=== PATIENT | male | born 1935 | race African-American/Black ===

== ENCOUNTER 2021-03-30 16:37 | Inpatient (IN) | payer MEDICARE, BC ==
[~2021-03-30] VITALS: Ht 188 cm; Wt 63.5 kg
[2021-03-30 18:34] LABS: BASOPHILS % 0.3 % (0.0-2.0); EOSINOPHILS % 0.2 % (0.0-5.0); HEMATOCRIT. 36.4 % (42.0-52.0); HEMOGLOBIN. 11.9 g/dL (14.0-18.0); LYMPHOCYTES % 34.8 % (20.0-50.0); MEAN CORPUSCULAR HEMOGLOBIN 24.7 pg (28.0-32.0); MEAN CORPUSCULAR VOLUME 75.9 fL (80.0-94.0); MEAN PLATELET VOLUME 8.9 fl (7.4-10.4); MONOCYTES % 6.2 % (2.0-8.0); NEUTROPHILS % 58.5 % (40.0-76.0); PLATELET 262 x1000/uL (130-400); RED CELL DISTRIBUTION WIDTH 18.5 % (11.6-14.6)
[2021-03-30 18:35] LABS: CHLORIDE 104 mEq/L (98-107); CLARITY URINE CLOUDY (CLEAR); COLOR URINE YELLOW (YELLOW); KETONES URINE TRACE (NEGATIVE); LEUKOCYTE ESTERASE URINE 2+ (NEGATIVE); NITRITE URINE NEGATIVE (NEGATIVE); OCCULT BLOOD URINE 2+ (NEGATIVE); PROTEIN URINE 1+ (NEGATIVE); SPECIFIC GRAVITY URINE 1.016 (1.005-1.030)
[2021-03-30 18:52] LABS: INR 1.5; PROTHROMBIN TIME 15.3 sec (9.6-11.0)
[2021-03-30] MEDS ORDERED: LISINOPRIL 10MG TABLET PO ONE (19:30)
[2021-03-30] MEDS ORDERED: CEFTRIAXONE 1 G PREMIX 50 ML IV ONE (19:30)
[2021-03-31] VITALS (7 sets, daily range): BP systolic 97–180; BP diastolic 59–93
[2021-03-31] MEDS ORDERED: HYDRALAZINE HCL 50MG TABLET PO ONE (01:00)
[2021-03-31] MEDS ORDERED: CLONIDINE 0.1MG TABLET PO PRN (04:45)
[2021-03-31] MEDS ORDERED: ACETAMINOPHEN 650MG/20.3ML UDC PO PRN (04:45)
[2021-03-31] MEDS ORDERED: DEXTROSE 50% WATER 50ML SYRINGE IV PRN (06:15)
[2021-03-31] MEDS: BLOOD SUGAR DIAGNOSTIC STRIP TEST SCH ×4 (06:38→21:24)
[2021-03-31] MEDS: INSULIN LISPRO 100 UNITS/ML SUBCUT SCH ×4 (06:45→21:25)
[2021-03-31] MEDS ORDERED: LEVOFLOXACIN 500MG PREMIX 100 ML IV SCH (08:00)
[2021-03-31] MEDS ORDERED: LEVOFLOXACIN 500MG PREMIX 100 ML IV NR (08:00)
[2021-03-31] MEDS ORDERED: IPRATROPIUM/ALBUTEROL 0.5-3(2.5)MG/3ML NEB HHN PRN (08:00)
[2021-03-31] MEDS ORDERED: LISINOPRIL 10MG TABLET PO SCH (09:00)
[2021-03-31] MEDS ORDERED: ENOXAPARIN 40MG/0.4ML SYR SUBCUT SCH (13:00)
[2021-03-31] MEDS: TAMSULOSIN HCL 0.4MG SR CAPSULE PO SCH (13:56)
[2021-03-31] MEDS: AMLODIPINE 10MG TABLET PO SCH (13:56)
[2021-03-31] MEDS ORDERED: LISI10TA26 PO (16:52)
[2021-03-31] MEDS ORDERED: WARF-67 PO (16:56)
[2021-03-31] MEDS ORDERED: FERR325T6 PO (16:56)
[2021-03-31] MEDS ORDERED: WARF1TAB85 PO (16:56)
[2021-03-31] MEDS ORDERED: ATOR40TA70 PO (16:56)
[2021-03-31] MEDS ORDERED: METF-416 PO (16:56)
[2021-03-31] MEDS ORDERED: WARFARIN SODIUM 5MG TABLET PO NR (19:30)
[2021-03-31 21:15] LABS: BASOPHILS % 0.4 % (0.0-2.0); EOSINOPHILS % 0.1 % (0.0-5.0); HEMATOCRIT. 35.9 % (42.0-52.0); HEMOGLOBIN. 11.7 g/dL (14.0-18.0); INR 1.6; LYMPHOCYTES % 26.6 % (20.0-50.0); MEAN CORPUSCULAR VOLUME 76.4 fL (80.0-94.0); MEAN PLATELET VOLUME 9.6 fl (7.4-10.4); MONOCYTES % 9.9 % (2.0-8.0); PLATELET 246 x1000/uL (130-400); PROTHROMBIN TIME 16.3 sec (9.6-11.0); RED BLOOD CELL COUNT 4.69 mill/uL (4.7-6.1); RED CELL DISTRIBUTION WIDTH 18.9 % (11.6-14.6)
[2021-03-31] MEDS: METOPROLOL TARTRATE 50MG TABLET PO SCH (21:23)
[2021-03-31] MEDS: ATORVASTATIN CALCIUM 40MG TABLET PO SCH (21:24)
[2021-03-31 21:26] LABS: CHLORIDE 103 mEq/L (98-107)
[2021-04-01] VITALS: BP 145/68
[2021-04-01 04:00] VITALS: BP 155/83
[2021-04-01 06:02] LABS: BASOPHILS % 0.4 % (0.0-2.0); EOSINOPHILS % 0.1 % (0.0-5.0); HEMOGLOBIN. 11.9 g/dL (14.0-18.0); LYMPHOCYTES % 33.2 % (20.0-50.0); MEAN CORPUSCULAR HEMOGLOBIN 25.1 pg (28.0-32.0); MEAN CORPUSCULAR VOLUME 76.2 fL (80.0-94.0); MEAN PLATELET VOLUME 9.1 fl (7.4-10.4); NEUTROPHILS % 57.3 % (40.0-76.0); PLATELET 237 x1000/uL (130-400); RED BLOOD CELL COUNT 4.73 mill/uL (4.7-6.1)
[2021-04-01 06:04] LABS: CHLORIDE 103 mEq/L (98-107)
[2021-04-01 06:06] LABS: INR 1.4; PROTHROMBIN TIME 15.1 sec (9.6-11.0)
[2021-04-01] MEDS: INSULIN LISPRO 100 UNITS/ML SUBCUT SCH ×3 (06:10→21:00)
[2021-04-01] MEDS: BLOOD SUGAR DIAGNOSTIC STRIP TEST SCH ×4 (06:10→20:59)
[2021-04-01 08:00] VITALS: BP 152/80
[2021-04-01] MEDS ORDERED: LEVOFLOXACIN 250MG PREMIX 50 ML IV SCH ×2 (08:00)
[2021-04-01] MEDS: TAMSULOSIN HCL 0.4MG SR CAPSULE PO SCH (08:57)
[2021-04-01] MEDS: METOPROLOL TARTRATE 50MG TABLET PO SCH ×2 (08:58→20:59)
[2021-04-01] MEDS: AMLODIPINE 10MG TABLET PO SCH (08:58)
[2021-04-01 12:00] VITALS: BP 138/70
[2021-04-01 16:00] VITALS: BP 120/64
[2021-04-01] MEDS ORDERED: WARFARIN SODIUM 7.5MG TABLET PO SCH (18:00)
[2021-04-01] MEDS: AMPICILLIN SOD/SULBACTAM NA 3 G in SODIUM CHLORIDE 0.9% 100 ML IV SCH (19:38)
[2021-04-01 20:00] VITALS: BP 116/63
[2021-04-01] MEDS: ATORVASTATIN CALCIUM 40MG TABLET PO SCH (20:59)
[2021-04-02] VITALS: BP 112/63
[2021-04-02] MEDS: AMPICILLIN SOD/SULBACTAM NA 3 G in SODIUM CHLORIDE 0.9% 100 ML IV SCH ×3 (01:12→11:54)
[2021-04-02 04:00] VITALS: BP 140/71
[2021-04-02 05:54] LABS: INR 1.5; PROTHROMBIN TIME 15.8 sec (9.6-11.0)
[2021-04-02] MEDS: INSULIN LISPRO 100 UNITS/ML SUBCUT SCH ×2 (06:07→12:45)
[2021-04-02] MEDS: BLOOD SUGAR DIAGNOSTIC STRIP TEST SCH ×2 (06:07→11:58)
[2021-04-02 08:00] VITALS: BP 160/79
[2021-04-02] MEDS: TAMSULOSIN HCL 0.4MG SR CAPSULE PO SCH (08:47)
[2021-04-02] MEDS: METOPROLOL TARTRATE 50MG TABLET PO SCH (08:48)
[2021-04-02] MEDS: AMLODIPINE 10MG TABLET PO SCH (08:48)
[2021-04-02 12:00] VITALS: BP 141/73
[2021-04-02 13:13] VITALS: BP 141/73
[2021-04-02] MEDS ORDERED: WARFARIN SODIUM 7.5MG TABLET PO SCH (18:00)
[2021-04-06] MEDS ORDERED: CEPH500T MT (12:12)
== END 2021-04-02 15:55 | disposition home health service (06) | DRG 689 ==
LOC: ER 16:37 → 8WST 20:22 → ENRESERV 03-31 02:16
PROVIDERS: ADMIT Family Medicine Adult Medicine; ATTEND Family Medicine Adult Medicine
DX: N39.0 Urinary tract infection, site not specified (principal); J18.9 Pneumonia, unspecified organism; I69.351 Hemiplegia and hemiparesis following cerebral infarction affecting right dominant side; E11.9 Type 2 diabetes mellitus without complications; F03.90 Unspecified dementia, unspecified severity, without behavioral disturbance, psychotic disturbance, mood disturbance, and anxiety; I10 Essential (primary) hypertension; Z20.822 Contact with and (suspected) exposure to COVID-19
CPT/HCPCS: 36415; 71045; 80048; 80053; 81003; 82962; 83036; 83735; 83880; 84484; 85025; 87077; 87186; 87426; 93970; 97162; 99285; C1893; J0295; J0696; J1650; J1815; J1956; J7040; J7050